=== PATIENT | male | born 1960 | race Caucasian/White ===

== ENCOUNTER → 2016-03-22 13:03 | Outpatient (CLI) | payer MEDICARE, OTHER | END | disposition home or self-care (01) | LOC: D.LABREF 13:03 | DX: M16.12 Unilateral primary osteoarthritis, left hip (principal); Z11.8 Encounter for screening for other infectious and parasitic diseases ==

== ENCOUNTER 2016-11-23 11:26 | Day surgery (SDC) | payer MEDICARE, OTHER ==
[~2016-11-23 11:26] MED LIST: DESERYL100 MG PO; NEURONTIN 400400 MG PO; OXYCODONE HCL E20 MG PO; ROXICODONE15 MG PO; TESTOSTERON200 MG/ML IM; VALIUM5 MG PO; VITAMIN B-1000 MCG/M IM; ZANAFLEX4 MG PO
[2016-11-23 13:38] VITALS: BP 143/75; BMI 27.0
--- NOTE | 2016-11-23 16:58 | NUR ---
1948 DISCHARGE INSTRUCTIONS COMPLETE. PRESCRIPTIONS GIVEN. ESCORTED OUT BY TERRENCE AKERS.
--- NOTE | 2016-12-26 10:04 | OP ---
PATIENT NAME: SINGH OROPEZA MEDICAL RECORD: [id number] :56 LOCATION:[facility] ADMISSION DATE: SURGEON: MIRZA RAMOS DATE OF OPERATION: 11/23/2016 SURGEON: Mirza Ramos DPM. PREOPERATIVE DIAGNOSES: 1. Metatarsal deformity, second metatarsal, left foot. 2. Metatarsal deformity, third metatarsal left foot. POSTOPERATIVE DIAGNOSES: 1. Metatarsal deformity, second metatarsal, left foot. 2. Metatarsal deformity, third metatarsal left foot. PROCEDURES: 1. Jazz osteotomy, second metatarsal, left foot. 2. Jazz osteotomy, third metatarsal, left foot. ANESTHESIA: Local with monitored anesthesia care. HEMOSTASIS: Pneumatic ankle tourniquet inflated to 250 mmHg. ESTIMATED BLOOD LOSS: Minimal. MATERIALS: Two [employer] Dart-Fire screws. INJECTABLES: A 20 cc of 0.5% bupivacaine plain. The patient has longstanding history of pain associated with the metatarsals on the plantar aspect of the left foot. We have discussed with him the proposed procedure. Risks and benefits were reviewed. Complications were discussed. His questions were answered. He was appropriately consented for the above-mentioned procedures. The patient was brought in the operating room and placed on the operating table in a supine position. A timeout was called with Dr. Ramos, who identified the patient, the surgical site, and the surgeries to be performed. Once appropriate anesthesia was obtained, the foot was prepped and draped in the usual aseptic manner. The pneumatic ankle tourniquet was inflated to 250 mmHg on the well-padded left ankle. PROCEDURE NUMBER 1: Jazz osteotomy, second metatarsal, left foot. Attention was directed to the dorsal aspect of the second metatarsophalangeal joint where a 4-cm linear incision was made. This incision was carried deep to soft tissue with care being taken to retract all vital neurovascular structures. All bleeders were cauterized along the way. The periosteum was then reflected from the head of the second metatarsal, thus exposing the second metatarsophalangeal joint. Next, utilizing a sagittal saw, a through and through osteotomy was created in the head of the second metatarsal. This osteotomy was oriented from distal dorsal to proximal plantar. The capital fragment was shifted proximally and temporary fixation was gained via K-wire. Next, utilizing manufactured recommended technique, one 2.0-mm screw was placed across the osteotomy. All OPERATIVE REPORT [id number] SINGH OROPEZA remaining over hanging bone from the dorsal aspect of the metatarsal was removed with a rongeur. The surgical site was then irrigated with copious amounts of normal sterile saline via bulb syringe. The periosteum was then reapproximated and coapted using 3-0 Vicryl. The subQ was then reapproximated and coapted using 3-0 Vicryl. The skin was reapproximated and coapted using 4-0 nylon. PROCEDURE NUMBER 2: Jazz osteotomy, third metatarsal, left foot. The exact same procedure that was performed in procedure number 1 (Jazz osteotomy, second metatarsal, left foot) was performed on the third metatarsal left foot without exception. A dressing consisting of Xeroform, 4 x 4's, Kerlix, and Richard bandage was applied to the left foot. The pneumatic ankle tourniquet was deflated and capillary refill time is immediate to all digits of the left foot. The patient tolerated the procedure and anesthesia well. He left the operating room with vital signs stable and capillary refill time intact. The patient will be discharged home with instructions to ice and elevate the left foot. He was dispensed a boot to help offload the surgical sites. He has my cell phone number for any after hour difficulties. He has a pain contract, so no narcotic pain prescription was provided today. We did provide him with a prescription for ibuprofen 800 mg. There were no complications with this procedure and we will follow up with him next week. TRANSINT:[id number] Voice Confirmation ID: [id number] DOCUMENT ID: [id number] MIRZA RAMOS at 1004 CC: [id number] DICTATION DATE: 11/23/16 1657 HEATING WORKER: 11/23/16 2209 [facility] 11/23/[address] [id number]
== END 2016-11-23 16:55 | disposition home or self-care (01) ==
LOC: D.OPS 11:26
DX: M21.6X2 Other acquired deformities of left foot (principal); Z01.812 Encounter for preprocedural laboratory examination